=== PATIENT | male | born 1940 | race Caucasian/White ===

== ENCOUNTER 2023-03-02 14:55 | Inpatient (IN) | payer MEDICARE ==
[~2023-03-02 14:55] MED LIST: Iopamidol-370 76% 500 ML MDV (1 ML CHARGE) ONE
[2023-03-02] MEDS ORDERED: Ipratropium/Albuterol 3 ML NEB ONE (15:24)
[2023-03-02 16:00] LABS: #Eosinphils 0.3 thou/uL (0.0-0.7); #Monocytes 0.8 thou/uL (0.11-0.59); #Neutrophils 3.7 thou/uL (1.40-6.50); %Basophils 0.3 % (0.0-1.0); %Eosinophils 4.9 % (0.0-10.0); %Lymphocytes 20.6 % (21.0-51.0); %Neutrophils 60.9 % (42.0-75.0); Hemoglobin 12.1 g/dL (14.0-18.0); Mean Corpuscular HGB CONC 31.8 g/dL (32.0-36.0); Mean Corpuscular Hemoglobin 30.9 pg (27.0-31.0); Mean Corpuscular Volume 97.2 fl (78.0-98.0); Mean Platelet Volume 9.8 fL (7.4-10.4); Platelet Count 145 10x3/uL (130-400); RBC Distribution Width 13.1 % (11.5-14.5); Red Blood Cell (RBC) Count 3.91 mill/uL (4.70-6.10); White Blood Cell (WBC) Count 6.1 10x3/uL (4.8-10.8)
[2023-03-02 16:34] LABS: ALT (SGPT) 23 U/L (8-55); AST (SGOT) 25 U/L (5-34); Albumin 3.9 g/dL (3.4-4.8); Alkaline Phosphatase 48 U/L (40-110); Anion Gap 12 mmol/L (10-20); BUN (Urea Nitrogen) 29 mg/dL (8.4-25.7); Bilirubin, Total 1.1 mg/dL (0.2-1.2); Calc. Creatinine Clearance 0 mL/min (70-130); Calcium 9.4 mg/dL (7.8-10.44); Carbon Dioxide 21 mmol/L (23-31); Chloride 105 mmol/L (98-107); Estimated GFR 54; Globulin 2.9 g/dL (2.4-3.5); Glucose 69 mg/dL (83-110); Magnesium 1.8 mg/dL (1.6-2.6); Protein, Total 6.8 g/dL (5.8-8.1); Sodium 134 mmol/L (136-145); Troponin I Less than 0.010 ng/mL (< 0.028)
[2023-03-02] MEDS ORDERED: cefTRIAXone (ROCEPHIN) 2 GM VIAL ONE (16:35)
[2023-03-02] MEDS ORDERED: Azithromycin 500 MG VIAL ONE (16:35)
[2023-03-02] MEDS ORDERED: Sodium Chloride 0.9% 100 ML ONE (16:35)
[2023-03-02 16:54] LABS: SARS-CoV-2 NAA Rapid Test Not Detected (NotDetected)
[2023-03-02] MEDS ORDERED: Furosemide 40 MG (4 mL) VIAL ONE (19:33)
[2023-03-02] MEDS ORDERED: Acetaminophen 325 MG TAB PO PRN (19:36)
[2023-03-02] MEDS ORDERED: Ondansetron PF 4 MG/2 ML Vial IVP PRN (19:36)
[2023-03-02] MEDS ORDERED: Ipratropium/Albuterol 3 ML NEB EZPAP PRN (19:42)
[2023-03-02] MEDS ORDERED: Dextrose 50% Abboject 50 ML SYRINGE SLOW IVP PRN (19:45)
[2023-03-02] MEDS ORDERED: Dextrose 5% in Water 1,000 ML IV PRN (19:45)
[2023-03-02] MEDS ORDERED: Glucagon 1 MG/ML KIT IM PRN (19:45)
[2023-03-02] MEDS ORDERED: Magnesium Sulfate 2 GM in Sodium Chloride 0.9% 100 ML IVPB SCH (20:45)
[2023-03-02] MEDS ORDERED: Magnesium 2 GM/50 ML(in water) 2 GM in Premix 1 BAG IVPB SCH (21:00)
[2023-03-02] MEDS ORDERED: Enoxaparin 100 MG (1 mL) SYRINGE SC SCH (21:30)
[2023-03-02 21:49] VITALS: BMI 27.6
[2023-03-02 23:08] LABS: Legionella Urinary Ag Negative (Negative); Strep pneumo Urine Ag NEGATIVE (NEGATIVE)
[2023-03-03] MEDS: Levothyroxine Sodium 100 MCG TAB PO SCH (05:16)
[2023-03-03] MEDS: Furosemide 20 MG (2 mL) VIAL SLOW IVP SCH ×2 (05:16→13:24)
[2023-03-03 05:51] LABS: #Eosinphils 0.4 thou/uL (0.0-0.7); #Monocytes 0.9 thou/uL (0.11-0.59); #Neutrophils 2.6 thou/uL (1.40-6.50); %Basophils 0.4 % (0.0-1.0); %Monocytes 16.2 % (0.0-10.0); Hematocrit 36.1 % (42.0-52.0); Hemoglobin 11.8 g/dL (14.0-18.0); Mean Corpuscular HGB CONC 32.7 g/dL (32.0-36.0); Mean Corpuscular Hemoglobin 30.4 pg (27.0-31.0); Mean Platelet Volume 9.9 fL (7.4-10.4); Platelet Count 149 10x3/uL (130-400); RBC Distribution Width 13.2 % (11.5-14.5); Red Blood Cell (RBC) Count 3.88 mill/uL (4.70-6.10); White Blood Cell (WBC) Count 5.4 10x3/uL (4.8-10.8)
[2023-03-03] MEDS: Benzonatate 100 MG CAP PO PRN ×2 (06:26→13:24)
[2023-03-03 06:40] LABS: Anion Gap 14 mmol/L (10-20); BUN (Urea Nitrogen) 25 mg/dL (8.4-25.7); Calc. Creatinine Clearance 53 mL/min (70-130); Calcium 9.1 mg/dL (7.8-10.44); Carbon Dioxide 27 mmol/L (23-31); Chloride 103 mmol/L (98-107); Estimated GFR 49; Glucose 88 mg/dL (83-110); Magnesium 2.1 mg/dL (1.6-2.6); Potassium 4.1 mmol/L (3.5-5.1); Sodium 140 mmol/L (136-145)
[2023-03-03] MEDS ORDERED: Enoxaparin 40 MG (0.4 mL) SYRINGE SC SCH (09:00)
[2023-03-03] MEDS: Enoxaparin 100 MG (1 mL) SYRINGE SC SCH ×2 (09:23→21:02)
[2023-03-03] MEDS: Lisinopril 20 MG TAB PO SCH (09:23)
[2023-03-03] MEDS ORDERED: HumaLOG 300 UNITS/3 ML VIAL SC PRN ×2 (12:14)
[2023-03-03] MEDS ORDERED: cefTRIAXone\\ROCEPHIN 1 GM in Sodium Chloride 0.9% 100 ML IVPB SCH (16:30)
[2023-03-03] MEDS ORDERED: Azithromycin 500 MG in Sodium Chloride 0.9% 250 ML 250 ML IVPB SCH ×2 (17:00→18:00)
[2023-03-03] MEDS ORDERED: Atorvastatin Calcium 20 MG TAB PO SCH (21:00)
[2023-03-04] MEDS: Furosemide 20 MG (2 mL) VIAL SLOW IVP SCH (05:14)
[2023-03-04] MEDS: Levothyroxine Sodium 100 MCG TAB PO SCH (05:15)
[2023-03-04 05:51] LABS: #Eosinphils 0.4 thou/uL (0.0-0.7); #Monocytes 0.7 thou/uL (0.11-0.59); #Neutrophils 1.8 thou/uL (1.40-6.50); %Basophils 0.4 % (0.0-1.0); %Eosinophils 8.8 % (0.0-10.0); %Lymphocytes 38.8 % (21.0-51.0); %Monocytes 14.9 % (0.0-10.0); %Neutrophils 36.5 % (42.0-75.0); Hematocrit 37.9 % (42.0-52.0); Hemoglobin 12.2 g/dL (14.0-18.0); Mean Corpuscular HGB CONC 32.2 g/dL (32.0-36.0); Mean Corpuscular Volume 93.1 fl (78.0-98.0); Mean Platelet Volume 10.1 fL (7.4-10.4); Platelet Count 147 10x3/uL (130-400); RBC Distribution Width 13.2 % (11.5-14.5); Red Blood Cell (RBC) Count 4.07 mill/uL (4.70-6.10)
[2023-03-04 06:17] LABS: Anion Gap 9 mmol/L (10-20); BUN (Urea Nitrogen) 32 mg/dL (8.4-25.7); Calc. Creatinine Clearance 50 mL/min (70-130); Calcium 9.1 mg/dL (7.8-10.44); Carbon Dioxide 31 mmol/L (23-31); Chloride 102 mmol/L (98-107); Estimated GFR 47; Glucose 122 mg/dL (83-110); Magnesium 1.9 mg/dL (1.6-2.6); Potassium 3.8 mmol/L (3.5-5.1); Sodium 138 mmol/L (136-145)
[2023-03-04] MEDS: Lisinopril 20 MG TAB PO SCH (09:34)
[2023-03-04] MEDS: Enoxaparin 100 MG (1 mL) SYRINGE SC SCH (09:34)
[2023-03-04 11:17] VITALS: BP 133/88; TEMP 97.4
== END 2023-03-04 11:57 | disposition home or self-care (01) | DRG 194 ==
LOC: ERS 14:55 → 2NO 19:41
PROVIDERS: ADMIT Internal Medicine; ATTEND Family Medicine
DX: J18.9 Pneumonia, unspecified organism (principal); J21.0 Acute bronchiolitis due to respiratory syncytial virus; I48.91 Unspecified atrial fibrillation; E11.649 Type 2 diabetes mellitus with hypoglycemia without coma; R60.0 Localized edema; I10 Essential (primary) hypertension; E78.5 Hyperlipidemia, unspecified; D64.9 Anemia, unspecified; Z98.890 Other specified postprocedural states; Z87.891 Personal history of nicotine dependence; Z11.52 Encounter for screening for COVID-19; Z79.899 Other long term (current) drug therapy; Z79.84 Long term (current) use of oral hypoglycemic drugs
CPT/HCPCS: 0241U; 36415; 36416; 71045; 71275; 80048; 80053; 83605; 83735; 83880; 84145; 84443; 84484; 85025; 85379; 87040; 87070; 87205; 87449; 87899; 93005; 93306; 96365; 96367; 96375; J0456; J0696; J1650; J1940; J3475; J3490; J7050; J7620; Q9967

== ENCOUNTER 2023-03-21 10:45 | Outpatient (CLI) | payer MEDICARE | END 2023-03-21 10:46 | disposition home or self-care (01) | LOC: BICCT 10:45 | PROVIDERS: ATTEND Family Medicine | DX: R91.8 Other nonspecific abnormal finding of lung field (principal); I25.10 Atherosclerotic heart disease of native coronary artery without angina pectoris; J43.9 Emphysema, unspecified; K80.20 Calculus of gallbladder without cholecystitis without obstruction | CPT/HCPCS: 71260; Q9967 ==